=== PATIENT | female | born 1970 | race Two or more races ===

== ENCOUNTER 2025-01-01 10:31 | Emergency (ER) | payer MEDICAID ==
[~2025-01-01] VITALS: Ht 167.6 cm; Wt 111.2 kg
--- NOTE | 2025-01-01 10:53 | ED.PDOC ---
Back pain HPI HPI Comments A 54 YEAR OLD FEMALE PRESENTS TO THE ED WITH COMPLAINT OF LOWER BACK PAIN. PATIENT STATES SHE HAS BEEN EXPERIENCING LOWER BACK PAIN FOR THE PAST 3 DAYS. PATIENT NOTES THAT SHE DID A URINE TEST WITH HER PRIMARY CARE PHYSICIAN WHERE HE TESTED POSITIVE FOR A UTI, BUT IS NOT SURE IF THIS IS WHAT IS CAUSING HER PAIN. PATIENT DENIES SADDLE ANESTHESIA, URINARY INCONTINENCE, BOWEL INCONTINENCE, DYSURIA, HEMATURIA, FEVER, CHILLS, SHORTNESS OF BREATH, CHEST PAIN, ABDOMINAL PAIN, NAUSEA, VOMITING, HEADACHE, OR OTHER COMPLAINTS. NO OTHER SYMPTOMS OR MODIFYING FACTORS AT THIS TIME. PATIENT IS ALERT, ORIENTED X 4, AND HAS STEADY GAIT. Chief Complaint: Back Pain Time Seen by MD: 10:34 Reviewed Notes: Nurses Notes, Medications, Allergies Allergies: Coded Allergies: NO KNOWN ALLERGIES (Unverified , 01/01/25) Home Meds Active Scripts Methocarbamol (Methocarbamol) 750 Mg Tab, 750 MG PO BID, #20 TAB Prov:CAMDEN SANCHEZ 01/01/25 Ibuprofen (Ibuprofen) 800 Mg Tab, 1 TAB PO TID, #30 TAB Prov:CAMDEN SANCHEZ 01/01/25 Information Source: Patient Mode of Arrival: Ambulatory Timing: Days Duration: Since onset, Days Location of Back pain: (B) Lower back Severity: Moderate Prehospital treatment: None Quality: Aching, Cramping Onset: Spontaneous History of: UTI Modifying Factors: Movement, Twisting Associated signs and symptoms: None Past Medical History PAST MEDICAL HISTORY: High Lipids, UTI'S Surgical History: Denies all surgeries TALLOW MAKER History: No Pertinent TALLOW MAKER History Family History Family History: Reviewed,noncontributory to illness Social History Smoker: Non-Smoker Alcohol: Denies ETOH Use Drugs: Denies Drug Use Lives In: Home Constitutional: denies: chills, diaphoresis, fatigue, fever, malaise, sweats, weakness, others EENTM: denies: blurred vision, double vision, ear bleeding, ear discharge, ear drainage, ear pain, ear ringing, eye pain, eye redness, hearing loss, mouth pain, mouth swelling, nasal discharge, nose bleeding, nose congestion, nose pain, photophobia, tearing, throat pain, throat swelling, voice changes, others Respiratory: denies: cough, hemoptysis, orthopnea, SOB at rest, shortness of breath, SOB with excertion, stridor, wheezing, others Cardiovascular: denies: chest pain, dizzy spells, diaphoresis, Dyspnea on exertion, edema, irregular heart beat, left arm pain, lightheadedness, palpitations, PND, syncope, others Gastrointestinal: denies: abdomen distended, abdominal pain, blood streaked bowels, constipated, diarrhea, dysphagia, difficulty swallowing, hematemesis, melena, nausea, poor appetite, poor fluid intake, rectal bleeding, rectal pain, vomiting, others Genitourinary: denies: abnormal vagina bleeding, burning, dyspareunia, dysuria, flank pain, frequency, hematuria, incontinence, pain, , vagina dis charge, urgency, others Neurological: denies: dizziness, fainting, headache, left sided numbness, left sided weakness, numbness, paresthesia, pre-existing deficit, right sided numbness, right sided weakness, seizure, speech problems, tingling, tremors, weakness, others Musculoskeletal: reports: back pain, muscle pain; denies: gout, joint pain, joint swelling, muscle stiffness, neck pain, others Integumetry: denies: bruises, change in color, change in hair/nails, dryness, laceration, lesions, lumps, rash, wounds, others Allergic/Immunocompromised: denies: Difficulty Healing, Frequent Infections, Hives, Itching, others Hematologic/Lymphatic: denies: anemia, blood clots, easy bleeding, easy bruising, swollen glands, others Endocrine: denies: excessive hunger, excessive sweating, excessive thirst, excessive urination, flushing, intolerance to cold, intolerance to heat, unexplained weight gain, unexplained weight loss, others Psychiatric: denies: anxiety, bipolar disorder, depression, hopeless, panic disorder, schizophrenia, sleepless, suicidal, others All Other Systems: Reviewed and Negative Physical Exam General Appearance: No Apparent Distress, Obese HEENT: Normal ENT Inspection, PERRL/EOMI, Pharynx Normal, TMs Normal Neck: Full Range of Motion, Non-Tender, Normal, Normal Inspection Respiratory: Chest Non-Tender, Lungs Clear, No Accessory Muscle Use, No Respiratory Distress, Normal Breath Sounds Cardiovascular: No Edema, No JVD, No Murmur, No Gallop, Normal Peripheral Pulses, Regular Rate/Rhythm Breast Exam: Deferred Gastrointestinal: No Organomegaly, Non Tender, No Pulsatile Mass, Normal Bowel Sounds, Soft Genitalia: Deferred Pelvic: Deferred Rectal: Deferred Extremities: No calf tenderness, Normal capillary refill, Normal inspection, Normal range of motion, Non-tender, No pedal edema Musculoskeletal : Location: Bilateral Extremity Location: Back Apperance: Tenderness: Moderate (TENDERNESS AND MUSCLE SPASM ON LOWER BACK, NO BONY TENDERNESS, SWELLING AND DEFORMITY. NO CVA TENDERNESS. ) Neurologic: Alert, historical site guide II-XII nml as Tested, No Motor Deficits, Normal Affect, Normal Mood, No Sensory Deficits Cerebellar Function: Normal Reflexes: Normal Skin: Dry, Normal Color, Warm Peripheral Pulses: 2+ carotid (R), 2+ carotid (L), 2+ dorsalis pedis (R), 2+ do rsalis pedis (L) Lymphatic: No Adenopathy Was a procedure done? Was a procedure done?: No Back Pain Differential Dx Differential Diagnosis: DJD, Musculoskeletal Pain, Strain Other Differential Diagnosis UTI, ACUTE CYSTITIS X-Ray, Labs, Meds, VS Vital Signs Date Time Temp Pulse Resp B/P (MAP) Pulse Ox O2 Delivery O2 Flow Rate FiO2 01/01/25 10:54 98.3 64 18 134/92 (106) 96 98.3 01/01/25 10:54 64 18 96 Room Air* 0 21 01/01/25 10:41 99.5 72 18 131/67 95 99.5 Lab Test 01/01/25 10:52 Range/Units Urine Color Yellow Yellow Urine Clarity Clear Clear Urine pH 6.5 5.0-9.0 Urine Specific [place] 1.025 1.001-1.035 Urine Protein Negative Negative Urine Ketones Negative Negative Urine Blood Trace H Negative /uL Urine Nitrite Negative Negative Urine Bilirubin Negative Negative Urine Urobilinogen Normal Negative mg/dL Urine Leukocyte Esterase Negative Negative /uL Urine RBC 2 0 - 4 /hpf Urine Microscopic WBC 1 0-5 /HPF Urine Squamous Epithelial Cells Few <5 /hpf Urine Bacteria Few H None Seen /hpf Urine Glucose Normal Normal mg/dL Current Medications Medications (Trade) Dose Ordered Sig/Henry Route Start Time Stop Time Status Last Admin Ketorolac Tromethamine (Toradol Injection) 60 mg ONCE ONCE IM 01/01/25 11:00 01/01/25 11:01 DC 01/01/25 11:09 INDICATION: LOW BACK PAIN TECHNIQUE: 4 views of the lumbar spine were obtained. COMPARISON: None FINDINGS: There are no acute fractures or subluxations. Multilevel degenerative changes of the spine. Degenerative disc space narrowing at L5-S1. Suggestion of neural foraminal stenosis at L5-S1. IMPRESSION: No acute fracture or subluxation. ATED BY: KARLO ZABALA MD DICTATED DATE/TIME: 01/01/25 1142 SIGNED BY: KARLO ZABALA MD SIGNED DATE/TIME: 01/01/25 1142 CC: X-Ray, Labs, Meds, VS Comment EXTERNAL MEDICAL RECORDS REVIEWED: [NONE] INDEPENDENT HISTORIANS: [NONE] SOCIAL DETERMINANTS OF HEALTH: [NONE] LABS ORDERED: UA REVIEWED AND INTERPRETED RESULTS: NORMAL IMAGING ORDERED: XR L-SPINE TREATMENTS ORDERED: TORADOL 60 MG IM PROCEDURES PERFORMED: NONE CRITICAL CARE TIME: NONE I HAVE DISCUSSED THE PATIENT WITH THE ATTENDING PHYSICIAN DR. ALMODOVAR AND HE AGREES WITH THE PATIENT'S PLAN OF CARE AND DISPOSITION. BASED ON HISTORY OF PRESENT ILLNESS, AND PHYSICAL EXAM, PATIENT WILL BE DISCHARGED HOME. DISCUSSED PLAN FOR DISCHARGE HOME WITH RX [IBUPROFEN 800 MG]. MEDICATION WARNINGS GIVEN. SHARED DECISION MAKING: DISCUSSED WITH PATIENT THAT THEIR WORKUP WAS NORMAL. PATIENT INSTRUCTED TO FOLLOW UP WITH PRIMARY CARE PROVIDER IN 1-2 DAYS FOR RE- EVALUATION OF SYMPTOMS. PATIENT VERBALIZES UNDERSTANDING TO RETURN TO ED FOR NEW OR WORSENING SYMPTOMS OR IF FOLLOW UP WITH PCP CANNOT BE OBTAINED. PATIENT FEELS COMFORTABLE GOING HOME AT THIS TIME. ALL QUESTIONS ADDRESSED AT TIME OF DISCHARGE. Images Reviewed?: Images reviewed and evaluated by me Time of 1ST Reevaluation: 12:13 Reevaluation 1ST: Improved Patient Education/Counseling: Diagnosis, Treatment, Need For Follow Up Family Education/Counseling: Diagnosis, Treatment, Need For Follow Up Medical Screening: No EMC Exist At This Time SEPSIS Sepsis Screen Date sepsis recognized/suspect: Jan 01, 2025 Time Sepsis recognized/suspect: 1043 Recent Procedure: No On Antibiotic Therapy: No Respiratory Rate >20: No Heart Rate >90: No Temp<36 C (96.8 F) or >38.3 C: No SBP <90 or MAP <65 mmHG: No New Acute Mental Status Change: No Is the patient on CPAP, BIPAP,: No Physician Orders Lumbar Spine 3 View (01/01/25 10:52) Vital Signs Date Time Temp Pulse Resp B/P (MAP) Pulse Ox O2 Delivery O2 Flow Rate FiO2 01/01/25 10:54 98.3 64 18 134/92 (106) 96 98.3 01/01/25 10:54 64 18 96 Room Air* 0 21 01/01/25 10:41 99.5 72 18 131/67 95 99.5 Medications Medications Dose Ordered Sig/Henry Route Start Time Stop Time Status Last Admin Dose Admin Ketorolac Tromethamine 60 mg ONCE ONCE IM 01/01/25 11:00 01/01/25 11:01 DC 01/01/25 11:09 Departure 1 Departure Time of Disposition: 12:13 Impression: Primary Impression: DDD (degenerative disc disease), lumbar Qualified Codes: M51.360 - Other intervertebral disc degeneration, lumbar region with discogenic back pain only Disposition: HOME / SELF CARE / HOMELESS Condition: Stable Additional Instructions: FOLLOW-UP WITH PCP IN 1 TO 2 DAYS. TAKE MEDICATIONS PRESCRIBED. RETURN TO ED FOR ANY NEW OR WORSENING SYMPTOMS. e-Prescriptions Methocarbamol (Methocarbamol) 750 Mg Tab 750 MG PO BID, #20 TAB Prov: CAMDEN SANCHEZ 01/01/25 Ibuprofen (Ibuprofen) 800 Mg Tab 1 TAB PO TID, #30 TAB Prov: CAMDEN SANCHEZ 01/01/25 Discharged With: Self Critical Care Note Critical Care Time?: No Stability Stability form required: No I personally scribed for CAMDEN SANCHEZ ([email or web address]) on 01/01/25 at 10:53. Electronically submitted by Grant Ballard ([email or web address]). I personally scribed for CAMDEN SANCHEZ ([email or web address]) on 01/01/25 at 11:58. Electronically submitted by Grnat Ballard ([email or web address]). CAMDEN SANCHEZ Jan 01, 2025 10:53
[2025-01-01 10:54] VITALS: BP 134/92; PULSE 64; RESP 18; TEMP 98.3; O2SAT 96
[2025-01-01] MEDS: KETOROLAC TROMETH 60MG/2ML VIAL IM ONE (11:09)
[2025-01-01 11:14] LABS: Urine Protein, UAD Negative (Negative)
--- NOTE | 2025-01-01 11:45 | DVH ---
INDICATION: LOW BACK PAIN TECHNIQUE: 4 views of the lumbar spine were obtained. COMPARISON: None FINDINGS: There are no acute fractures or subluxations. Multilevel degenerative changes of the spine. Degenerative disc space narrowing at L5-S1. Suggestion of neural foraminal stenosis at L5-S1. IMPRESSION: No acute fracture or subluxation.
[2025-01-01] MEDS ORDERED: METH-1182 PO (12:12)
[2025-01-01] MEDS ORDERED: IBUP-1456 PO (12:12)
== END 2025-01-01 12:20 | disposition home or self-care (01) ==
LOC: ER 10:31
DX: M54.50 Low back pain, unspecified (principal); E78.5 Hyperlipidemia, unspecified; Z87.440 Personal history of urinary (tract) infections
CPT/HCPCS: 72100; 81001; 96372; 99284; J1885

== ENCOUNTER 2025-01-20 10:12 | Emergency (ER) | payer MEDICAID ==
[~2025-01-20] VITALS: Ht 167.6 cm; Wt 111.0 kg
[~2025-01-20 10:12] MED LIST: IBUP-1456 PO; METH-1182 PO
[2025-01-20] MEDS ORDERED: TRAM-626 PO (11:20)
--- NOTE | 2025-01-20 11:20 | ED.PDOC ---
Back pain HPI HPI Comments 54-YEAR-OLD FEMALE PRESENTS TO THE ER WITH DAUGHTER AND THE CHIEF COMPLAINT OF BACK PAIN. DAUGHTER REPORTS THAT THE PATIENT WAS INFORMED BY HER PCP THAT SHE HAS A ARTHRITIS IN HIS CURRENTLY SENDING THE PATIENT TO THERAPY. THE PATIENT FELL TWO MONTHS AGO BUT HAS NO PAIN ASSOCIATED TO THE CURRENT SYMPTOMS OF THE PATIENT NOT BEING ABLE TO SIT, WALK, LAID DOWN FOR THE PAST THREE WEEKS AND HAS WORSENED YESTERDAY. PATIENT IS TAKING GABAPENTIN FOR THE PAIN CURRENTLY AND TOOK 800 MG OF IBUPROFEN THIS MORNING. THE PATIENT WAS PRESCRIBED ROBAXIN AND IBUPROFEN LAST TIME THEY WERE HERE. DENIES ANY OTHER SYMPTOMS AT THIS TIME. DENIES HISTORY OF CHRONIC STEROID USE OR HISTORY OF OSTEOPOROSIS DENIES HISTORY OF CANCER DENIES FEVERS CHILLS NIGHT SWEATS NAUSEA VOMITING UNINTENTIONAL WEIGHT LOSS DENIES ABDOMINAL TEARING PAIN DENIES SYNCOPE DENIES URINARY CHANGES OR URINARY INCONTINENCE DENIES NUMBNESS TINGLING OF THE GROIN HER INNER THIGH DENIES PREVIOUS BACK PROCEDURES OR SURGERIES Chief Complaint: Back Pain Time Seen by MD: 10:15 Reviewed Notes: Nurses Notes, Medications, Allergies Allergies: Coded Allergies: NO KNOWN ALLERGIES (Unverified , 01/01/25) Home Meds Active Scripts Tramadol HCl (Tramadol HCl) 50 Mg Tab, 50 MG PO Q8HP PRN for 5 Days, #15 TAB 0 Refills Prov:KEYANA NAGEL NP 01/20/25 Methocarbamol (Methocarbamol) 750 Mg Tab, 750 MG PO BID, #20 TAB Prov:CAMDEN SANCHEZ 01/01/25 Ibuprofen (Ibuprofen) 800 Mg Tab, 1 TAB PO TID, #30 TAB Prov:CAMDEN SANCHEZ 01/01/25 Information Source: Patient, Relative (Child) Mode of Arrival: Ambulatory Duration: Since onset Location of Back pain: (R) Cervical Radiates to: Anterior: Other (RADIATES DOWN THE LEFT LEG) Radiates to: Posterior: Other (RADIATES DOWN LEFT LEG) Radiates to: Medial: Other (RADIATES DOWN THE LEFT LEG) Radiates to: Lateral: Other (RADIATES DOWN LEFT LEG) Severity: Moderate Prehospital treatment: None Quality: Aching Onset: Spontaneous History of: Chronic Back Pain Associated signs and symptoms: None Past Medical History PAST MEDICAL HISTORY: Arthritis, High Lipids, UTI'S Surgical History: Denies all surgeries FORMING YARDAGE CONTROL OPERATOR History: No Pertinent FORMING YARDAGE CONTROL OPERATOR History Family History Family History: Reviewed,noncontributory to illness, Unknown Social History Smoker: Non-Smoker Alcohol: Denies ETOH Use Drugs: Denies Drug Use Lives In: Home Constitutional: denies: chills, diaphoresis, fatigue, fever, malaise, sweats, weakness, others EENTM: denies: blurred vision, double vision, ear bleeding, ear discharge, ear drainage, ear pain, ear ringing, eye pain, eye redness, hearing loss, mouth pain, mouth swelling, nasal discharge, nose bleeding, nose congestion, nose pain, photophobia, tearing, throat pain, throat swelling, voice changes, others Respiratory: denies: cough, hemoptysis, orthopnea, SOB at rest, shortness of breath, SOB with excertion, stridor, wheezing, others Cardiovascular: denies: chest pain, dizzy spells, diaphoresis, Dyspnea on exertion, edema, irregular heart beat, left arm pain, lightheadedness, palpitations, PND, syncope, others Gastrointestinal: denies: abdomen distended, abdominal pain, blood streaked bowels, constipated, diarrhea, dysphagia, difficulty swallowing, hematemesis, melena, nausea, poor appetite, poor fluid intake, rectal bleeding, rectal pain, vomiting, others Genitourinary: denies: abnormal vagina bleeding, burning, dyspareunia, dysuria, flank pain, frequency, hematuria, incontinence, pain, , vagina discharge, urgency, others Neurological: denies: dizziness, fainting, headache, left sided numbness, left sided weakness, numbness, paresthesia, pre-existing deficit, right sided numbness, right sided weakness, seizure, speech problems, tingling, tremors, weakness, others Musculoskeletal: reports: back pain (RADIATES DOWN LEFT LEG); denies: gout, joint pain, joint swelling, muscle pain, muscle stiffness, neck pain, others Integumetry: denies: bruises, change in color, change in hair/nails, dryness, laceration, lesions, lumps, rash, wounds, others Allergic/Immunocompromised: denies: Difficulty Healing, Frequent Infections, Hives, Itching, others Hematologic/Lymphatic: denies: anemia, blood clots, easy bleeding, easy bruising, swollen glands, others Endocrine: denies: excessive hunger, excessive sweating, excessive thirst, excessive urination, flushing, intolerance to cold, intolerance to heat, unexplained weight gain, unexplained weight loss, others Psychiatric: denies: anxiety, bipolar disorder, depression, hopeless, panic disorder, schizophrenia, sleepless, suicidal, others All Other Systems: Reviewed and Negative Physical Exam General Appearance: No Apparent Distress, Normal HEENT: Normal ENT Inspection, Pharynx Normal, TMs Normal Neck: Full Range of Motion, Non-Tender, Normal, Normal Inspection Respiratory: Chest Non-Tender, Lungs Clear, No Accessory Muscle Use, No Respiratory Distress, Normal Breath Sounds Cardiovascular: No Edema, No JVD, No Murmur, No Gallop, Normal Peripheral Pulses, Regular Rate/Rhythm Breast Exam: Deferred Gastrointestinal: No Organomegaly, Non Tender, No Pulsatile Mass, Normal Bowel Sounds, Soft Genitalia: Deferred Pelvic: Deferred Rectal: Deferred Extremities: No calf tenderness, Normal capillary refill, Normal inspection, Normal range of motion, Non-tender, No pedal edema Musculoskeletal : Apperance: Normal Neurologic: Alert, makeup artistry instructor II-XII nml as Tested, No Motor Deficits, Normal Affect, Normal Mood, No Sensory Deficits Cerebellar Function: Normal Reflexes: Normal Skin: Dry, Normal Color, Warm Lymphatic: No Adenopathy Was a procedure done? Was a procedure done?: No Back Pain Differential Dx Differential Diagnosis: Other X-Ray, Labs, Meds, VS Vital Signs Date Time Temp Pulse Resp B/P (MAP) Pulse Ox O2 Delivery O2 Flow Rate FiO2 01/20/25 11:36 97.7 77 17 134/88 (103) 97 97.7 01/20/25 11:36 77 16 97 Room Air 01/20/25 10:14 97.5 82 18 118/48 96 97.5 X-Ray, Labs, Meds, VS Comment 54-YEAR-OLD FEMALE PRESENTS TO THE ER WITH DAUGHTER AND THE CHIEF COMPLAINT OF BACK PAIN. PATIENT ARRIVES ALERT AND ORIENTED, ABC'S INTACT, AFEBRILE, VITAL SIGNS STABLE, SATURATING WELL IN ROOM AIR I CONSIDERED CAUDA EQUINA, SPINAL CORD COMPRESSION, VERTEBRAL MALIGNANCY/METS, ACUTE SPINAL FRACTURE, VERTEBRAL OSTEOMYELITIS, EPIDURAL ABSCESS, INFECTED OR OBSTRUCTED KIDNEY STONE, HOWEVER THIS IS LESS LIKELY THE PATIENT DOES NOT PRESENT WITH LOWER BACK PAIN RED FLAGS SYMPTOMS SUCH BOWEL OR BLADDER DYSFUNCTION, SADDLE ANESTHESIA, PARESTHESIA, AND WITHOUT ANY HISTORY OF MALIGNANCY OR RECENT BACK TRAUMA OR SPINAL INTERVENTIONS. THEREFORE FURTHER IMAGING STUDIES SUCH A LUMBAR MRI WERE NOT INDICATED ON TODAY'S VISIT. PRESENTATION MOST CONSISTENT WITH NONEMERGENT MUSCULOSKELETAL ETIOLOGY VERSUS NONEMERGENT DISC HERNIATION. ED WORKUP: [facility] AND LAB WORK FOR OUTPATIENT FOLLOW UP AT THIS TIME DISPOSITION: DISCHARGE. STRICT RETURN PRECAUTIONS DISCUSSED WITH THE PATIENT WITH FULL UNDERSTANDING. SUPPORTIVE CARE ADVISED (REST, ICE, HEAT, NSAIDS, STRETCHING EXERCISES) MASSAGE MUSCLES WITH COLD PACK OR ICE FOR 20 MINUTES 4 TIMES PER DAY. USUALLY MOST USEFUL IF THERE IS SWELLING DURING THE FIRST 48 HOURS HEATING PAD ON THE MOST PAINFUL AREA FOR 20 MINUTES TO RELIEVE MUSCLE SPASM SLEEP AND THE MOST COMFORTABLE SLEEPING POSITION (USUALLY ON THE SIDE WITH KNEES BENT) LIGHT STRETCHING, NO STRENUOUS ACTIVITY, AVOID FREQUENT BENDING, AVOID CARRYING HEAVY OBJECTS DISCUSSED POSSIBLE BENEFITS OF YOGA AND ACUPUNCTURE RETURN PRECAUTIONS DISCUSSED INCLUDING INABILITY TO WALK/BEAR WEIGHT PARESTHESIA/WEAKNESS/LEG PAIN FECAL/URINARY INCONTINENCE ANY WORSENING SYMPTOMS ADDITIONAL MDM REVIEW OF EXTERNAL, NON-ED RECORDS: EXTERNAL RECORDS REVIEWED. DISCUSSION WITH INDEPENDENT HISTORIAN (EMS, FAMILY) HISTORY OBTAINED FROM THE PATIENT/PARENTS (IF APPLICABLE) AT BEDSIDE CHRONIC CONDITIONS AFFECTING CARE: NONE SOCIAL DETERMINANTS OF HEALTH AFFECTING CARE: NONE CONSIDERATION OF ADMISSION (OBSERVATION OR ADMISSION): I CONSIDERED ESCALATION OF CARE TO ADMISSION FOR THIS PATIENT, HOWEVER GIVEN THE REASSURING WORKUP, THE PATIENT IS SAFE FOR OUTPATIENT MANAGEMENT. DISCUSSION WITH THE RADIOLOGY: NO TESTS CONSIDERED BUT NOT PERFORMED: PRESCRIPTION MEDICATION CONSIDERED BUT NOT GIVEN: 12 LEAD EKG INTERPRETATION: Time of 1ST Reevaluation: 10:45 Reevaluation 1ST: Unchanged Patient Education/Counseling: Diagnosis, Treatment, Prognosis Family Education/Counseling: No Family Present SEPSIS Sepsis Screen Date sepsis recognized/suspect: Jan 20, 2025 Time Sepsis recognized/suspect: 1014 Recent Procedure: No On Antibiotic Therapy: No Respiratory Rate >20: No Heart Rate >90: No Temp<36 C (96.8 F) or >38.3 C: No SBP <90 or MAP <65 mmHG: No New Acute Mental Status Change: No Is the patient on CPAP, BIPAP,: No Vital Signs Date Time Temp Pulse Resp B/P (MAP) Pulse Ox O2 Delivery O2 Flow Rate FiO2 01/20/25 11:36 97.7 77 17 134/88 (103) 97 97.7 01/20/25 11:36 77 16 97 Room Air 01/20/25 10:14 97.5 82 18 118/48 96 97.5 Departure 1 Departure Time of Disposition: 11:19 Impression: Primary Impression: DDD (degenerative disc disease), lumbar Qualified Codes: M51.362 - Other intervertebral disc degeneration, lumbar region with discogenic back pain and lower extremity pain Disposition: HOME / SELF CARE / HOMELESS Condition: Stable e-Prescriptions Tramadol HCl (Tramadol HCl) 50 Mg Tab 50 MG PO Q8HP PRN for 5 Days, #15 TAB 0 Refills Prov: KEYANA NAGEL NP 01/20/25 Critical Care Note Critical Care Time?: No Stability Stability form required: No I personally scribed for KEYANA NAGEL NP ([email or web address]) on 01/20/25 at 11:57. Electronically submitted by Keenan Torre ([email or web address]). KEYANA NAGEL NP Jan 20, 2025 11:20
[2025-01-20 11:36] VITALS: BP 134/88; PULSE 77; RESP 16; TEMP 97.7; O2SAT 97
== END 2025-01-20 11:43 | disposition home or self-care (01) ==
LOC: ER 10:12
DX: M51.369 Other intervertebral disc degeneration, lumbar region without mention of lumbar back pain or lower extremity pain (principal)